=== PATIENT | female | born 1960 | race Caucasian/White ===

== ENCOUNTER → 2025-05-07 10:56 | Outpatient (BNVA) | payer MEDICARE, MEDICAID, SELFPAY | PROVIDERS: PCP Family Medicine; Visit Provider Family Medicine | DX: Z13.6 Encounter for screening for cardiovascular disorders (principal); M79.7 Fibromyalgia; Z98.84 Bariatric surgery status; R53.83 Other fatigue; R25.2 Cramp and spasm; F41.1 Generalized anxiety disorder | CPT/HCPCS: 80053; 80061; 82306; 82607; 83735; 84439; 84443; 85025 ==